=== PATIENT | female | born 1960 | race Hispanic/Latino ===

== ENCOUNTER 2022-06-12 10:00 | Outpatient (RCR) | payer OTHER | END 2022-06-16 | LOC: PT 10:00 | PROVIDERS: ATTEND Specialist | DX: M17.11 Unilateral primary osteoarthritis, right knee (principal) ==

== ENCOUNTER 2022-06-17 07:52 | Outpatient (RCR) | payer OTHER | END 2022-07-17 | LOC: PT 07:52 | PROVIDERS: ATTEND Specialist | DX: M17.11 Unilateral primary osteoarthritis, right knee (principal) ==